=== PATIENT | male | born 2000 | race Caucasian/White ===

== ENCOUNTER 2020-09-13 09:49 | Emergency (ER) | payer SELFPAY ==
[2020-09-13 09:58] VITALS: BP 131/66; PULSE 88; RESP 16; TEMP 36.8; O2SAT 100
--- NOTE | 2020-09-13 10:22 | ED.BACK ---
HPI - Back Pain/Injury General Chief Complaint: Back Pain/Injury Stated Complaint: back pain Time Seen by Provider: 09/13/20 10:14 Source: patient and RN notes reviewed Mode of arrival: ambulatory Limitations: no limitations History of Present Illness HPI Narrative: Patient presents today complaining of left upper back pain x2 days. Patient reports sharp pain after lifting his father trying to pop his back. Patient denies radiation of the pain, numbness or tingling in the extremities, loss of bowel or bladder control, neck pain. Pain increases with movement and twisting. Currently rates his pain 6/10 and has been using Biofreeze and ibuprofen with short-term relief. Patient does report mild improvement since onset of symptoms. 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 MD elicited complaint: back pain Related Data Allergies Allergy/AdvReac Type Severity Reaction Status Date / Time No Known Allergies Allergy Verified 09/13/20 10:05 Review of Systems Review of Systems: Narrative: CONSTITUTIONAL: Denies body aches, fever, chills, or sweats. EYES: Denies visual changes, redness, or discharge. ENT: Denies rhinorrhea, congestion, sore throat, or otalgia. CARDIOVASCULAR: Denies chest pain, palpitations, or edema. RESPIRATORY: Denies cough or dyspnea. GASTROINTESTINAL: Denies abdominal pain, nausea, vomiting, or diarrhea. GENITOURINARY: Denies dysuria or hematuria. SKIN: Denies rash, itching, or wounds. MUSCULOSKELETAL: Denies joint pain, or myalgia. + upper back pain NEUROLOGIC: Denies headache, numbness, tingling, or weakness. PSYCH: Denies depression or anxiety. PMFSH Comments At time of signature, I have reviewed and agree with nursing past medical, surgical, social and family history unless otherwise noted. Please see nursing chart for further information. There is no relevant family history pertinent to the presenting complaint Exam Narrative: Exam Narrative: GENERAL: Well-appearing, well-nourished, and in no acute distress. HEAD: Normocephalic, atraumatic. EYES: EOMI. No redness or drainage. Conjunctivae normal. ENT: Mucous membranes pink and moist. NECK: Normal AROM. Supple. No lymphadenopathy. Neck is nontender. CHEST: No respiratory distress. MUSCULOSKELETAL: No bony tenderness of the spine. No right-sided thoracic or lumbar paraspinal muscle tenderness. + Left upper thoracic paraspinal muscle tenderness. Distal sensation intact. Capillary refill normal. Radial pulses normal. Foot push and pulls equal and strong. Handgrips equal and strong. EXTREMITIES: Normal range of motion. No edema. SKIN: Warm, dry, no rash. Capillary refill normal. Normal skin turgor. NEURO: No focal deficits. Alert and oriented x3. Gait steady. PSYCH: Normal affect. No signs of depression or anxiety. Course Vital Signs Vital signs: Vital Signs Temperature 98.3 F 09/13/20 09:58 Pulse Rate 88 09/13/20 09:58 Respiratory Rate 16 09/13/20 09:58 Blood Pressure 131/66 09/13/20 09:58 Pulse Oximetry 100 09/13/20 09:58 Temperature 98.3 F 09/13/20 09:58 Pulse Rate 88 09/13/20 09:58 Respiratory Rate 16 09/13/20 09:58 Blood Pressure 131/66 09/13/20 09:58 Pulse Oximetry 100 09/13/20 09:58 Reviewed. Pt has been instructed to follow up with his PCP regarding his elevated blood pressure today. MDM - Back Pain/Injury Differential Diagnosis Differential diagnosis: Likely thoracic back pain and other (Muscle strain, cervical strain, lumbar strain, bulging disc) Critical Care Time Critical Care Time Critical Care Time: No Discharge Plan Discharge Clinical Impression: Strain of left trapezius muscle Patient Disposition: Home, Self-Care Condition: Stable Instructions: Thoracic Back Strain (ED) Additional Instructions: You have strained your left trapezius muscle. Please rest and apply heating pad. Continue to take the ibuprofen.
== END 2020-09-13 10:30 | disposition home or self-care (01) ==
PROVIDERS: Emergency Provider Nurse Practitioner; PCP Emergency Medicine
DX: S46.812A Strain of other muscles, fascia and tendons at shoulder and upper arm level, left arm, initial encounter (principal); X50.0XXA Overexertion from strenuous movement or load, initial encounter
CPT/HCPCS: 99213; G0463